=== PATIENT | male | born 1990 | race Caucasian/White ===

== ENCOUNTER 2024-11-18 09:19 | Emergency (ER) | payer OTHER, SELFPAY ==
[2024-11-18 09:23] VITALS: BP 115/69
[2024-11-18 10:35] VITALS: BP 110/86; BMI 29.6
--- NOTE | 2024-11-18 10:42 | ED.GENMED ---
History of Present Illness
General
Chief Complaint: Allergic Reaction
Source: patient and family
Time Seen by Provider: 11/18/24 10:34
History of Present Illness
History of Present Illness:
34-year-old male with past medical history of anxiety, depression, PTSD presenting the emergency department for evaluation after developing a rash yesterday afternoon and some redness to both eyes, took some Benadryl yesterday with some relief, woke
up this morning with worsening rash to bilateral upper arms, legs, torso and face. Patient states cannot think of anything that may have triggered the rash, denies any history of similar. No known history of allergic reactions. Denies any new
medications, foods, detergents, clothing or any other potential triggers. Denies any difficulty breathing, respiratory concerns, nausea, vomiting. No recent antibiotics. Patient did not take anything for his symptoms today.
Past History
Past History
ED Past Medical History: Psychiatric
ED Past Surgical History: Orthopedic
Social History
Tobacco: Non-smoker
Alcohol: Occasional
Drug: None
Personal: Single
Living: with family
Employment: Employed
Review of Systems
Review of Systems
All Other Systems: ROS reviewed and negative except as documented in HPI and ROS
Phy Exam
Physical Exam
Physical Exam:
GENERAL: Alert , in no apparent distress
EYE: conjunctiva clear but there is mild periorbital soft tissue swelling
NECK: Supple, no significant adenopathy.
ENT: o/p clr, mmm. No angioedema, no stridor or trismus
CARDIAC: Regular rate and rhythm
LUNGS: Clear breath sounds bilaterally, no acute respiratory distress, no wheezes/rales/rhonchi
NEUROLOGICAL: Alert and oriented
SKIN: Warm and dry, generalized erythematous urticarial rash to bilateral arms, legs and face
MUSCULOSKELETAL: well perfused.
PSYCH: Normal and appropriate interaction.
Scores
Heart Failure Risk
Heart Failure Risk Score: Not Applicable
Heart Score for Chest Pain Patients
STEMI patient?: Not applicable
Withdrawal Assessment of Alcohol
Withdrawal Assessment Completed?: Not applicable
Course
Orders/Labs/Results
Orders:
Orders
11/18/24 10:42
Diphenhydramine [Benadryl] 50 mg PO NOW STA
Famotidine [Pepcid] 20 mg PO NOW STA
Prednisone [Deltasone] 50 mg PO NOW STA
Vital Signs
Initial and Last Documented VS:
Initial Vital Signs
Temp Pulse Resp BP Pulse Ox
98.2 F 65 16 115/69 97
11/18/24 09:23 11/18/24 09:23 11/18/24 09:23 11/18/24 09:23 11/18/24 09:23
Last Documented Vital Signs
Temp Pulse Resp BP Pulse Ox
98.2 F 63 16 110/86 99
11/18/24 09:23 11/18/24 10:35 11/18/24 10:35 11/18/24 10:35 11/18/24 10:35
MDM/Problems Addressed
Differential Diagnosis Includes:
Unspecified urticaria, no concern for anaphylactic reaction, no concern for infectious etiology
MDM/Problems Addressed:
34-year-old male presenting to the ER for evaluation of what appears to be an allergic reaction but to unknown source. Took Benadryl yesterday with some relief, woke up this morning with worsening symptoms but did not take any medications. No
current signs of anaphylaxis on exam. Will treat here with Benadryl, prednisone and Pepcid. Anticipate sending home with the same as well as a prescription for an EpiPen just in case symptoms do seem to worsen. Will need follow-up with outpatient
primary care provider and may need further allergy testing. Anticipate discharge home.
*Pulse Oximetry
Patient hypoxic: no
*Critical Care Note
Total Time (30-74mins, 75-104mins- exclusive of procedures): Not Applicable
Patient Management
Escalation/DeEscalation of care consider admission/obs:
Patient with significant improvement of symptoms following oral medications. Prescriptions for EpiPen and prednisone sent to pharmacy. Continue Benadryl every 4-6 hours. 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 Aware of return precautions. Stable
for discharge home.
ED Attending Note
-
Portions of this chart may have been created with voice recognition software.� Occasional wrong word or��sound alike� substitutions may have occurred due to the inherent limitations of voice recognition software.
Discharge Plan
Departure
Patient Disposition: Home (Routine Discharge)
Date of Disposition: 11/18/24
Time of Disposition: 11:51
Patient with high blood pressure during this ER visit?: No
Discharge Problem:
Urticaria
Instructions: Hives (DC)
Prescriptions:
New
epinephrine [EpiPen] 0.3 mg/0.3 mL auto-injector
0.3 mg IM .STAT PRN (Reason: anaphylaxis) Qty: 1 0RF
prednisone 50 mg tablet
50 mg PO DAILY Qty: 5 0RF
Referrals:
Rita Schafer MD [Consulting Staff] - ([facility])
Salas Quintana DO [Family Provider] -
Interventions
Interventions:
*Risk Screen - Suicide Last Done: 11/18/24 10:36
*Neglect/Abuse Screening Last Done: 11/18/24 10:36
*ED- Fall Risk Assessment Last Done: 11/18/24 10:37
*ED COVID-19 Vaccine History Last Done: 11/18/24 10:38
*Nursing Disposition Last Done: 11/18/24 12:00
ED- Cardiac Assessment Last Done: 11/18/24 10:36
ED- Pulmonary Assessment Last Done: 11/18/24 10:36
ED-Skin Assessment Last Done: 11/18/24 10:36
Discharge Date and Time
Discharge Date/Time: 11/18/24 12:00
Print Language: CONGOLESE
[2024-11-18] MEDS: BENADRYL 50 MG PO (10:47)
[2024-11-18] MEDS: DELTASONE 50 MG PO (10:47)
[2024-11-18] MEDS: PEPCID 20 MG PO (10:47)
== END 2024-11-18 12:00 | disposition home or self-care (01) ==
LOC: EMR 09:19
PROVIDERS: EMERGENCY PHYSICIAN Student in an Organized Health Care Education/Training Program; FAMILY PHYSICIAN Family Medicine
DX: L50.9 Urticaria, unspecified (principal)
CPT/HCPCS: 99283